=== PATIENT | female | born 2000 | race Caucasian/White ===

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

== ENCOUNTER 2020-09-16 10:25 | Emergency (ER) | payer OTHER ==
[~2020-09-16] VITALS: Ht 152.4 cm; Wt 54.4 kg
[2020-09-16 10:29] VITALS: BP 99/73
--- NOTE | 2020-09-16 10:36 | NUR ---
PT AMBULATED TO BED 7.
--- NOTE | 2020-09-16 11:02 | NUR ---
19 YEAR OLD FEMALE COMPLAINS OF LEFT RING FINGER BITE X WEEK AGO. PT STATES THAT SHE WOKE UP AND HAD BITE ON FINGER, HAS BEEN PROGRESSIVELY GETTING MORE PRONOUNCED EACH DAY. PT AOX4, BREATHING EVEN AND UNLABORED, SKIN WARM AND DRY. BED IN LOWEST POSITION, LOCKED, BED RAIL UPX1. PMH - DENIES ALLERGIES - NKA
[2020-09-16 11:11] VITALS: BP 99/73
--- NOTE | 2020-09-16 11:11 | NUR ---
Patient discharged with v/s stable. Written and verbal after care instructions given and explained. Patient verbalized understanding. Ambulatory with steady gait. All questions addressed prior to discharge. Advised to follow up with PMD.
== END 2020-09-16 11:11 | disposition home or self-care (01) ==
LOC: MED 10:25
DX: R21 Rash and other nonspecific skin eruption (principal); M79.645 Pain in left finger(s)
CPT/HCPCS: 99282